=== PATIENT | male | born 1995 | race Caucasian/White ===

== ENCOUNTER 2017-10-07 09:55 | Emergency (ER) | payer OTHER ==
[~2017-10-07] VITALS: Ht 175.3 cm; Wt 74.8 kg
[~2017-10-07 09:55] MED LIST: CYCLOBENZAPRINE10 MG PO; IBUPROFEN600 MG PO; NORCO 5-325 TA1 EACH PO
== END 2017-10-07 10:29 | disposition home or self-care (01) ==
LOC: ED 09:55
PROC: 0HCGXZZ Extirpation of Matter from Left Hand Skin, External Approach (ICD-10-PCS; principal; 2017-10-07)
DX: S60.142A Contusion of left ring finger with damage to nail, initial encounter (principal); W22.8XXA Striking against or struck by other objects, initial encounter; F17.200 Nicotine dependence, unspecified, uncomplicated
CPT/HCPCS: 11740; 73130; 99283